=== PATIENT | female | born 1985 | race Caucasian/White ===

== ENCOUNTER 2020-10-10 11:38 | Outpatient (CLI) | payer OTHER, SELFPAY ==
--- NOTE | 2020-10-10 11:48 | XR_ITS ---
WS: [id number] CHEST 2 VIEWS HISTORY: POSITIVE IGRA COMPARISON: None available. Lungs: Clear with no abnormality. No pleural effusion or pneumothorax. Cardiac size: Normal. Mediastinum/Aorta: Normal mediastinum. Bones: Normal. XR/XR chest 2V* [id number] IMPRESSION: Normal chest.
== END 2020-10-10 11:39 | disposition home or self-care (01) ==
LOC: RAD 11:44
PROVIDERS: Visit Provider Family Medicine
DX: R76.12 Nonspecific reaction to cell mediated immunity measurement of gamma interferon antigen response without active tuberculosis (principal)
CPT/HCPCS: 71046

== ENCOUNTER → 2021-12-27 10:51 | Outpatient (BNVA) | payer OTHER, SELFPAY | PROVIDERS: Visit Provider Nurse Practitioner | DX: N39.0 Urinary tract infection, site not specified (principal) | CPT/HCPCS: 81000 ==

== ENCOUNTER 2023-05-13 09:19 | Outpatient (CLI) | payer OTHER, SELFPAY ==
--- NOTE | 2023-05-13 11:03 | MM_ITS ---
WS: [id number] DIAGNOSTIC BILATERAL DIGITAL BREAST TOMOSYNTHESIS MAMMOGRAPHY WITH CAD Bilateral breast ultrasound, limited. HISTORY: omkar breast lumps COMPARISON: None available. TECHNIQUE: Bilateral craniocaudad, mediolateral oblique, and mediolateral views are submitted with to mosynthesis and SM. Spot compression bilateral MLO views. Computer aided detection utilized. Breast composition: The breasts are extremely dense, which lowers the sensitivity of mammography. RIGHT breast: There are multiple, partially obscured masses scattered throughout the RIGHT breast. Pa lpable marker placed upper outer quadrant corresponding to a 15 x 11 mm mass. There are additional pa rtially obscured nodule central to the nipple. LEFT breast: There is a large well-circumscribed mass measuring 47 x 40 mm in the central breast whic h is palpable. Additional palpable mass measuring 13 x 14 mm in the upper outer quadrant posterior br east. There are additional scattered central partially obscured nodules. Bilateral breast ultrasound. RIGHT: Numerous cystic masses are identified within the RIGHT breast. Largest lateral to the nipple m easures 13 x 10 x 12 mm. There is a hypoechoic mass which is nearly isoechoic to the adjacent soft ti ssues measuring 5 x 4 x 4 mm. Mass in the RIGHT breast at 2:00, 3 cm from the nipple. Slightly taller than wide. No increased vascularity and no shadowing. LEFT breast: There are numerous cystic masses throughout the LEFT breast. The largest at 11:00, 1 cm from the nipple measures 51 x 15 x 49 mm. There are additional masses scattered throughout the breast . Well-circumscribed complex mass with fluid fluid level in the LEFT breast at 12:00, 3 cm from the n ipple probably representing interval hemorrhage. No solid mass. No distortion. MM/[id number] IMPRESSION: BI-RADS: 3-Probably Benign FOLLOW UP: 6 Month Follow-up RIGHT breast ultrasound follow-up 6 months at 2:00, 3 cm from the nipple.
== END 2023-05-13 09:20 | disposition home or self-care (01) ==
LOC: RAD 09:20
PROVIDERS: PCP Family Medicine; Visit Provider Family Medicine
DX: N60.02 Solitary cyst of left breast (principal); N60.01 Solitary cyst of right breast; N63.21 Unspecified lump in the left breast, upper outer quadrant; Z68.28 Body mass index [BMI] 28.0-28.9, adult
CPT/HCPCS: 76642; 77062; 80053; 80061; 81000; 84439; 84443; 85025; G0279

== ENCOUNTER → 2023-06-05 07:34 | Outpatient (BNVA) | payer OTHER, SELFPAY | PROVIDERS: PCP Family Medicine; Visit Provider Nurse Practitioner Family | DX: R35.0 Frequency of micturition (principal) | CPT/HCPCS: 81000 ==

== ENCOUNTER → 2023-09-25 10:19 | Outpatient (BNVA) | payer OTHER, SELFPAY | PROVIDERS: PCP Family Medicine; Visit Provider Nurse Practitioner Family | DX: R35.0 Frequency of micturition (principal); N39.0 Urinary tract infection, site not specified | CPT/HCPCS: 81000 ==

== ENCOUNTER 2024-07-02 08:34 | Outpatient (CLI) | payer OTHER, SELFPAY ==
--- NOTE | 2024-07-02 08:38 | MM_ITS ---
WS: [id number] BILATERAL 3D TOMOSYNTHESIS DIGITAL DIAGNOSTIC MAMMOGRAPHY WITH CAD CLINICAL INFORMATION: ABNORMAL MAMMOGRAM HISTORY: History of previous benign fibroadenoma breast biopsy. Increasing cyst 12:00 LEFT breast. In creasing lump LEFT axilla Prior history of cysts. Sister with ovarian and colon cancer. Family history of breast cancer COMPARISON: 05/13/2023. Prior outside studies including ultrasound 2015 and MRI 2017 TECHNIQUE: Bilateral CC, MLO, and ML views. FINDINGS: The breasts are composed of heterogeneous fibroglandular density, which can limit the detection of sm all underlying mass lesions. Palpable marker overlying the 12:00 large cyst LEFT breast which appears increased in size compared t o previous. Additional 1.2 cm nodule upper quadrant LEFT breast similar to previous Partially obscured nodules RIGHT breast centrally measuring 1.6 cm. Palpable marker anterior RIGHT br east overlies the 1.6 cm nodule. Additional partially obscured nodule upper quadrant measuring 1.5 cm anteriorly. Breast biopsy clip RIGHT breast. Palpable marker LEFT axilla with normal normal underlying fatty tissue. No visualized abnormalities i n the LEFT axilla. ULTRASOUND BREAST BILATERAL TECHNIQUE: Ultrasound bilateral breast focused area of concern. CLINICAL INFORMATION: ABNORMAL MAMMOGRAM COMPARISON: 2022 and 2015 FINDINGS: RIGHT BREAST: Hypoechoic nodule at the 2 o'clock position 3 cm from the nipple appears stable measuri ng 5 mm. This is slightly taller than wide and consider ultrasound-guided biopsy in further evaluatio n. Additional benign incidental cysts are visualized in the RIGHT breast, the largest at the 9 o'clock p osition with a lobulated appearance measuring 3.2 cm. LEFT BREAST: New hypoechoic indeterminate nodule at the 8 o'clock position LEFT breast may be intradu ctal and measures 8 x 5 x 7 mm. Recommend further evaluation with ultrasound-guided biopsy. Large cyst at the 11 o'clock position 1 cm from the nipple measuring 3.5 x 2.8 x 4.5 cm has increased in size compared to previous and could be aspirated at the time of the other biopsies. No abnormalities in the LEFT axilla. Additional notable lesion at the 12 o'clock position likely represents a complex or hemorrhagic cyst as previously described and appears stable measuring 6 mm. MM/[id number] IMPRESSION: BI-RADS: 4-Suspicious Finding-Biopsy Should Be Considered FOLLOW UP: US Guided Biopsy Recommended Recommend ultrasound-guided biopsy of the 2:00 RIGHT breast nodule and 8:00 LEF T breast nodule. In addition, the large increasing 12:00 LEFT breast cyst could also be aspirate d at that time
== END 2024-07-02 08:35 | disposition home or self-care (01) ==
LOC: RAD 08:35
PROVIDERS: PCP Family Medicine; Visit Provider Specialist
DX: R92.8 Other abnormal and inconclusive findings on diagnostic imaging of breast (principal); N64.9 Disorder of breast, unspecified; N60.02 Solitary cyst of left breast; N60.01 Solitary cyst of right breast; N63.12 Unspecified lump in the right breast, upper inner quadrant; N63.24 Unspecified lump in the left breast, lower inner quadrant; R92.323 Mammographic fibroglandular density, bilateral breasts
CPT/HCPCS: 76642; 77062; G0279

== ENCOUNTER 2024-07-21 06:51 | Outpatient (CLI) | payer OTHER, SELFPAY | END 2024-07-21 06:52 | disposition home or self-care (01) | LOC: RAD 06:51 | PROVIDERS: PCP Family Medicine; Visit Provider Specialist | DX: N63.10 Unspecified lump in the right breast, unspecified quadrant (principal); N63.20 Unspecified lump in the left breast, unspecified quadrant; N60.21 Fibroadenosis of right breast; N60.32 Fibrosclerosis of left breast; N60.42 Mammary duct ectasia of left breast | CPT/HCPCS: 19000; 19083; 76942; 88173; 88305 ==

== ENCOUNTER 2025-01-28 07:50 | Outpatient (CLI) | payer OTHER, SELFPAY ==
[2025-01-28 08:08] LABS: Basophils # 0.1 10^3/uL (0.0-0.1); Basophils % 0.7 %; Eosinophils # 0.1 10^3/uL (0.0-0.8); Eosinophils % 1.1 %; Hematocrit 39.7 % (36-47); Lymphocytes # 3.3 10^3/uL (0.8-4.8); Lymphocytes % 39.4 %; Mean Corpuscular HGB Conc 33.5 g/dL (30-55); Mean Corpuscular Hemoglobin 30.9 pg (27-33); Mean Corpuscular Volume 92.1 fl (85-98); Mean Platelet Volume 9.6 fL (7.4-10.4); Monocytes # 0.8 10^3/uL (0.2-0.9); Neutrophils # 4.13 10^3/uL (1.8-7.7); Neutrophils % 49.6 %; Nucleated Red Blood Cells % 0 %; Platelet Count 368 10^3/cmm (157-399); Red Blood Count 4.31 10^6/uL (3.85-5.65); Red Cell Distribution Width 13.2 % (12.1-15.1); White Blood Count 8.34 10^3/uL (3.29-11.43)
[2025-01-28 08:37] LABS: Alanine Aminotransferase 74 U/L (0-33); Albumin Level 4.4 g/dL (3.5-5.2); Alkaline Phosphatase 81 U/L (35-105); Anion Gap 15.9 (5-19); Aspartate Amino Transferase 28 U/L (0-32); Blood Urea Nitrogen 15 mg/dL (6-20); Calcium 9.1 mg/dL (8.5-10.5); Carbon Dioxide 23 mmol/L (22-29); Chloride 104 mmol/L (98-107); Chol HDL Ratio 3.87 mg/dL (0.0-4.40); Cholesterol 178 mg/dL (0-200); Globulin 2.8 g/dL (1.3-4.6); Glomerular Filtration Rate 93.6 mL/min (90-130); Glucose 114 mg/dL (65-115); HDL Cholesterol 46 mg/dL (60-100); LDL Cholesterol Calculated 111 mg/dL (50-129); LDL HDL Ratio 2.41 RATIO (0.00-3.22); Osmolality Calculated 288 mOsm/kg (285-295); Potassium 4.9 mmol/L (3.5-5.1); Sodium 138 mmol/L (136-145); Thyroid Stimulating Hormone 2.34 uIU/mL (0.27-4.20); Total Bilirubin 0.4 mg/dL (0.15-1.2); Total Protein 7.2 g/dL (6.6-8.7); Triglycerides 105 mg/dL (0-150)
[2025-01-28 09:21] LABS: Follicle Stimulating Hormone 3.5 mIU/mL; Luteinizing Hormone 4.9 mIU/mL (0.5-41.7); Prolactin 11.55 ng/mL (4.8-23.3)
== END 2025-01-28 07:51 | disposition home or self-care (01) ==
LOC: LAB 07:51
PROVIDERS: PCP Family Medicine; Visit Provider Family Medicine
DX: Z00.00 Encounter for general adult medical examination without abnormal findings (principal); N91.1 Secondary amenorrhea
CPT/HCPCS: 36415; 80053; 80061; 83001; 83002; 84146; 84443; 85025